=== PATIENT | female | born 1990 | race Caucasian/White ===

== ENCOUNTER 2018-10-31 23:56 | Emergency (ER) | payer OTHER ==
[~2018-10-31] VITALS: Ht 157.5 cm; Wt 79.4 kg
[~2018-10-31 23:56] MED LIST: IBUPROFEN 400400 M2 PO; IBUPROFEN 600600 M1 PO; MACROBID 100 M100 M1 PO; NORCO 5-325 TA1 EACH PO; PRENATAL VITAM1 EAC5
[2018-11-01 00:29] VITALS: BP 129/63
== END 2018-11-01 02:05 | disposition home or self-care (01) ==
LOC: ER 23:56
DX: S59.902A Unspecified injury of left elbow, initial encounter (principal); W22.03XA Walked into furniture, initial encounter; Y93.89 Activity, other specified; Y92.009 Unspecified place in unspecified non-institutional (private) residence as the place of occurrence of the external cause; Y99.8 Other external cause status